=== PATIENT | female | born 1955 | race Caucasian/White ===

== ENCOUNTER → 2017-07-09 15:05 | Outpatient (CLI) | payer OTHER, SELFPAY ==
--- NOTE | 2017-07-09 15:09 | CT_ITS ---
EXAM: CT LUNG LOW DOSE WO CONTRAST COMPARISON: 05/13/2016 HISTORY: 62-year-old female with greater than 30 pack-year smoking history asymptomatic ORDERING PHYSICIAN: Colt Fountain MD PATIENT AGE: 62 years TECHNIQUE: The exam was performed on a [employer] Speed [address] scanner using 18.1 mGy CTDI. A low dose helical CT CHEST was performed on a multi-detector scanner The LDCT was performed in a facility that meets the criteria for the screening program. Data regarding this exam was submitted to ACR which is an approved registry. The order for this exam indicates that it came as a result of a lung cancer screening counseling shard decision-making visit that included all the elements required of such a visit including smoking cessation. The radiologist interpreting this exam meets the CMS criteria for the LDCT lung cancer screening program. The exam is reported using the Lung-RADS classification scale and reported to the ACR registry. NOTE: This study was performed for the specific purposes of lung cancer screening and is not an alternative to diagnostic chest CT. RADIATION DOSE: CTDI vol(CT dose Index-volume) = 18.1mG DLP (Dose Length Product) = 596.3 mGcm FINDINGS: There is improved inspiration on today's exam compared to the previous exam. A 6 mm noncalcified nodule is once again noted in the right lung base posteriorly unchanged. There are scattered calcified nodule present No new nodules are apparent. Centrilobular emphysema. There is hyperinflation with bronchial thickening. Specifically, there is bronchial thickening involving the right anterior segmental bronchus of the right upper lobe some patchy density in this segment consistent with mild bronchiolitis. No effusions. Coronary artery calcifications are present. Small hiatal hernia noted. IMPRESSION: 1. Lung RADS Category: 3, probably benign 2. Other findings: Centrilobular Emphysema/COPD Bronchiolitis in the anterior segment of the right upper lobe RECOMMENDATIONS: 12 month LDCT follow-up
== END ==
PROVIDERS: Family Provider Family Medicine; PCP Family Medicine; Visit Provider Family Medicine
DX: Z87.891 Personal history of nicotine dependence (principal); Z12.2 Encounter for screening for malignant neoplasm of respiratory organs

== ENCOUNTER → 2018-06-22 14:54 | Outpatient (CLI) | payer OTHER, SELFPAY ==
--- NOTE | 2018-06-22 15:02 | CT_ITS ---
CT lung screening EXAM: CT LUNG LOW DOSE WO CONTRAST HISTORY: 42 pack year smoking history, asymptomatic for lung cancer ITS.REASON: TOBACCO USE ORDERING PHYSICIAN: Colt Fountain MD PATIENT AGE: 63 years COMPARISON: 07/09/2017 TECHNIQUE: The exam was performed on a [employer] Light Speed [address] scanner using 2.90 mGy CTDI. A low dose helical CT CHEST was performed on a multi-detector scanner. All CT scans at the facility use one or more dose reduction, viz: automated exposure control, ma/kV adjustment per patient size (including targeted exams where dose is matched to indication, i.e. head), or iterative reconstruction technique. The LDCT was performed in a facility that meets the criteria for the screening program. Data regarding this exam was submitted to ACR which is an approved registry. The order for this exam indicates that it came as a result of a lung cancer screening counseling shard decision-making visit that included all the elements required of such a visit including smoking cessation. The radiologist interpreting this exam meets the CMS criteria for the LDCT lung cancer screening program. The exam is reported using the Lung-RADS classification scale and reported to the ACR registry. NOTE: This study was performed for the specific purposes of lung cancer screening and is not an alternative to diagnostic chest CT. RADIATION DOSE: CTDI vol(CT dose Index-volume) = 2.90mG DLP (Dose Length Product) = 96.27 mGcm FINDINGS: There has been prior anterior cervical disc fusion with artifact from the bone plate. Coronary artery calcifications are noted. There is some faint increased density in the anterior mediastinum which may be related to residual thymic tissue unchanged. Normal heart size. There are scattered calcified granulomas. 6 mm noncalcified nodule right lung base once again noted unchanged mild bronchial thickening once again noted unchanged. The previously noted opacities in the right upper lobe have resolved. There is hyperinflation with attenuation of peripheral pulmonary vessels consistent with COPD. IMPRESSION: 1. Lung RADS Category: 2, benign 2. Other findings: Coronary artery calcifications, old granulomatous disease, COPD RECOMMENDATIONS: 12 month LDCT follow-up
== END ==
PROVIDERS: PCP Family Medicine; Visit Provider Family Medicine
DX: Z12.2 Encounter for screening for malignant neoplasm of respiratory organs (principal); Z87.891 Personal history of nicotine dependence

== ENCOUNTER → 2020-08-14 08:19 | Outpatient (CLI) | payer MEDICARE, SELFPAY ==
--- NOTE | 2020-08-14 08:24 | CT_ITS ---
PROCEDURE: CT LUNG SCREENING CLINICAL INDICATION: H/O NICOTINE DEPENDENCE Current smoker 50 pack year smoking history copd Prior on pacs COMPARISON: CT LDCTLCAS LDCT FOR LUNG CA SCREEN from 05/13/[address] lung screening from 06/22/2018 TECHNIQUE: The exam was performed on a [employer] Speed [address] scanner using 2.90 mGy CTDI. A low dose helical CT CHEST was performed on a multi-detector scanner. All CT scans at the facility use one or more dose reduction, viz: automated exposure control, ma/kV adjustment per patient size (including targeted exams where dose is matched to indication, i.e. head), or iterative reconstruction technique. The LDCT was performed in a facility that meets the criteria for the screening program. Data regarding this exam was submitted to ACR which is an approved registry. The order for this exam indicates that it came as a result of a lung cancer screening counseling shard decision-making visit that included all the elements required of such a visit including smoking cessation. The radiologist interpreting this exam meets the CMS criteria for the LDCT lung cancer screening program. The exam is reported using the Lung-RADS classification scale and reported to the ACR registry. NOTE: This study was performed for the specific purposes of lung cancer screening and is not an alternative to diagnostic chest CT. RADIATION DOSE: CTDI vol(CT dose Index-volume) = 2.90mG DLP (Dose Length Product) = 88.56 mGcm FINDINGS: COPD changes. Scattered calcified granulomas. Stable 6 mm noncalcified nodule right lower lobe posteriorly image 38 series 4. No new nodules evident. OTHER FINDINGS: Coronary artery calcifications. Prior right nephrectomy.. Prior cholecystectomy. IMPRESSION: Lung-RADS Category 1 Negative Follow-up: Continue annual screening with LDCT in 12 months Dictated by: Brody Goodman MD 08/17/2020 12:55 Brody Goodman MD in [place] 08/17/2020 12:55
--- NOTE | 2020-08-14 08:24 | MM_ITS ---
PROCEDURE INFORMATION: Exam: Screening 3D Mammography Exam date and time: 08/14/2020 8:24 AM Age: 65 years old Clinical indication: Encounter for screening mammogram for malignant neoplasm of breast TECHNIQUE: Imaging protocol: Screening tomosynthesis and 2D mammography including computer-aided detection (CAD) when performed. COMPARISON: MG DMSB DIG MAMM-SCREEN SARAY W/CAD 05/13/2016 3:31 PM FINDINGS: MAMMOGRAPHY: Breast composition: The breasts are extremely dense, which lowers the sensitivity of mammography. Mass: No new suspicious masses. Architectural distortion: No suspicious distortion. Calcifications: No suspicious calcifications. Asymmetric density: None. Skin thickening: None. Axillary adenopathy: None. IMPRESSION: No mammographic evidence of malignancy. Annual screening is recommended unless otherwise clinically indicated. ASSESSMENT: BI-RADS Category 1: Negative
--- NOTE | 2020-08-14 08:25 | XR_ITS ---
PROCEDURE: XR DEXA AXIAL SKELETON CLINICAL HISTORY: POST [place] Pt had spinal fusion COMPARISON: No exams were available for comparison FINDINGS: The right hip BMD is 0.547 with a T-score of -2.7. The left hip BMD is 0.695 with a T-score of -2.0. The right forearm BMD is 0.493 with a T-score of -3.4. IMPRESSION: This patient is considered osteoporotic according to the World Health Organization criteria. Fracture risk is high. Treatment is advised. Based on these results a follow-up exam is recommended in 1 year. Dictated by: Brody Goodman MD 08/15/2020 06:26 Brody Goodman MD in [place] 08/15/2020 06:26
== END ==
PROVIDERS: PCP Family Medicine; Visit Provider Internal Medicine Adolescent Medicine
DX: Z87.891 Personal history of nicotine dependence (principal); Z12.2 Encounter for screening for malignant neoplasm of respiratory organs; Z12.31 Encounter for screening mammogram for malignant neoplasm of breast; Z13.820 Encounter for screening for osteoporosis; Z78.0 Asymptomatic menopausal state
CPT/HCPCS: 71271; 77063; 77067; 77080

== ENCOUNTER → 2022-01-18 08:27 | Outpatient (CLI) | payer MEDICARE, SELFPAY ==
--- NOTE | 2022-01-18 08:31 | MM_ITS ---
PROCEDURE INFORMATION: Exam: MG Bilateral Screening 3D Mammography Exam date and time: 01/18/2022 8:32 AM Age: 66 years old Clinical indication: Screening examination TECHNIQUE: Imaging protocol: Bilateral Screening tomosynthesis and 2D mammography including computer-aided detection (CAD) when performed. COMPARISON: 1. MG MM DIG SCREENING MAMM BI W/CAD 08/14/2020 9:13 AM 2. MG DMSB DIG MAMM-SCREEN SARAY W/CAD 05/13/2016 3:31 PM 3. MG DMSB DIG MAMM-SCREEN SARAY 07/09/2013 4:02 PM 4. MG DIGMAMMDX MAMMOGRAM DX-LEAD CAREGIVER N/C 03/09/1999 4:23 PM FINDINGS: MAMMOGRAPHY: Breast composition: The breast is heterogeneously dense, which may obscure small masses. Mass: Stable benign-appearing subcentimeter nodules are present in the left breast. No new or morphologically suspicious nodule has developed to suggest malignancy. Architectural distortion: No new or suspicious architectural distortion. Calcifications: Stable benign-appearing calcifications are present. No new or suspicious cluster of microcalcifications have developed. Asymmetric density: No new or suspicious asymmetric density is present Skin thickening: None. Axillary adenopathy: None. IMPRESSION: No mammographic evidence of malignancy. Recommend annual screening mammography unless otherwise clinically indicated. ASSESSMENT: BI-RADS category 2: Benign
--- NOTE | 2022-01-18 08:32 | XR_ITS ---
FINAL REPORT TECHNIQUE: Bone densitometry calculations of the lumbar spine and both hips were obtained. CLINICAL HISTORY: . post menopausal COMPARISON: 08/14/2020 FINDINGS: DEXA BONE DENSITY AXIAL SKELETON Using L1-4, the bone mineral density of the spine is 0.741 g/cm2, corresponding to T-score of -2.8. Previously not measured. Using the left hip, the bone mineral density of the femoral neck is 0.684 g/cm2, corresponding to a T-score of -2.1. Previously measured 0.695 g/cm2, corresponding to T-score of -2.0. Using the right hip, the bone mineral density of the femoral neck is 0.786 g/cm2, corresponding to a T-score of -1.3. Previously measured 0.757 g/cm2, corresponding to T-score of -1.5. NOTE: T-score: Standard deviation compared with peak bone mass of young adult mean. *Following the recommendations of the International Society of Bone densitometry, classification of hip BMD is based on the lower of two T-scores; total hip or femoral neck. IMPRESSION: Osteoporosis: Lowest T-score is at or below -2.5. This patient's T-score meets the World Health Organization criteria for osteoporosis. Reviewed, Interpreted and Dictated by Cristin Cruz MD Transcribed by Silvana Bui Authenticated and [facility]
== END ==
PROVIDERS: PCP Internal Medicine Adolescent Medicine; Visit Provider Internal Medicine Adolescent Medicine
DX: Z12.31 Encounter for screening mammogram for malignant neoplasm of breast (principal); M81.0 Age-related osteoporosis without current pathological fracture
CPT/HCPCS: 77063; 77067; 77080

== ENCOUNTER → 2022-02-13 10:00 | Outpatient (CLI) | payer MEDICARE, SELFPAY ==
--- NOTE | 2022-02-13 10:06 | US_ITS ---
FINAL REPORT CLINICAL HISTORY: NECK MASS FINDINGS: Limited sonographic images of the right neck were obtained. No mass or abnormal fluid collection identified. IMPRESSION: No mass or abnormal fluid collection. Reviewed, Interpreted and Dictated by Alexis Kimbrough III, MD Transcribed by Rachana Layton Authenticated and . [facility]
--- NOTE | 2022-02-13 10:23 | US_ITS ---
FINAL REPORT CLINICAL HISTORY: NECK MASS FINDINGS: THYROID ULTRASOUND Sonographic images of the thyroid was obtained. The right lobe of the thyroid measures 4.5 x 2.1 x 1.6 cm. There is a nodule in the right lobe measuring 4 x 3 x 3 mm. It is solid and hypoechoic TI-RADS 4. The left lobe of the thyroid measures 4.2 x 1.4 x 1.3 cm. The isthmus measures 3 mm. There is a nodule at the isthmus measuring 14 x 14 x 7 mm. It is solid and hypoechoic, TI-RADS 4. Small less than 5 mm TI-RADS 1 cysts in both thyroid lobes. IMPRESSION: TI-RADS category 4 nodule at the isthmus and small less than 5 mm TI-RADS 1 cysts in both thyroid lobes. Recommend follow-up 6-12 months. Reviewed, Interpreted and Dictated by Alexis Kimbrough III, MD Transcribed by Silvana Bui Authenticated and [facility]
== END ==
PROVIDERS: PCP Internal Medicine Adolescent Medicine; Visit Provider Internal Medicine Adolescent Medicine
DX: R22.1 Localized swelling, mass and lump, neck (principal)
CPT/HCPCS: 76536

== ENCOUNTER → 2022-02-22 07:48 | Outpatient (CLI) | payer MEDICARE, SELFPAY ==
--- NOTE | 2022-02-22 07:49 | FL_ITS ---
FINAL REPORT CLINICAL HISTORY: fluoro time 1.07 difficulty swallowing FINDINGS: ESOPHAGRAM HISTORY: Abdominal pain, nausea. PROCEDURE: The patient ingested barium. Effervescent crystals were also administered. Spot and overhead films were obtained. FINDINGS: The esophagus is normal. There is a small sliding type hiatal hernia. A 13 mm barium tablet is briefly delayed at the hiatal hernia but passes.. There is no gastroesophageal reflux. Peristalsis is normal. IMPRESSION: Small sliding-type hiatal hernia, otherwise unremarkable esophagram. Films reviewed , interpreted and dictated by Dr. Kimbrough Transcribed by Connor Houston PA-C. Reviewed, Interpreted and Dictated by Alexis Kimbrough III, MD Transcribed by WALESKA Monge Authenticated and [facility]
== END ==
PROVIDERS: PCP Internal Medicine Adolescent Medicine; Visit Provider Otolaryngology
DX: E04.2 Nontoxic multinodular goiter (principal); R13.10 Dysphagia, unspecified; R49.0 Dysphonia
CPT/HCPCS: 74220

== ENCOUNTER 2022-05-14 11:56 | Emergency (ER) | payer MEDICARE, SELFPAY ==
--- NOTE | 2022-05-14 12:15 | XR_ITS ---
FINAL REPORT CLINICAL HISTORY: pain FINDINGS: LEFT FOOT Three views of the left foot demonstrate no acute fracture or dislocation. The joint spaces are preserved. The soft tissues are unremarkable. IMPRESSION: No acute bony abnormality. Reviewed, Interpreted and Dictated by Cristin Cruz MD Transcribed by Silvana Bui Authenticated and [facility]
[2022-05-14 12:45] VITALS: BP 150/54; PULSE 77; RESP 20; TEMP 36.5; O2SAT 95; BMI 25.4
--- NOTE | 2022-05-14 12:48 | EXP.UTC ---
Discharge Plan Disposition Patient Disposition: Home, Self-Care Condition: Good Prescriptions Prescriptions: No Action omeprazole 40 mg capsule,delayed release(DR/EC) 40 mg PO DAILY Qty: 90 3RF lisinopril 40 mg Tablet 40 mg PO DAILY Referrals Follow up/Referrals: Shakeel Chester MD [Primary Care Provider] - See instructions Ines Nguyen DPM [Staff Physician] - See instructions Activity Restrictions/Add. Instructions Additional Instructions/Restrictions: Rest the extremity, Elevate the extremity as tolerated while you are resting. Take tylenol or ibuprofen for pain. Follow up with Dr. Nguyen (podiatry). I put in a referral but you need to call her office and schedule an appointment. Follow up with your regular doctor. GO TO THE ER FOR ANY WORSENING SYMPTOMS Clinical Impressions Clinical Impression: Foot pain, left, Crush injury of left foot Discharge ED Provider: Sammy Aly [facility] HPI General Stated complaint: AO @home 04/30 LT foot pain Time Seen by Provider: 05/14/22 12:48 History of Present Illness Provider Complaint: She states that for the past 2 weeks she has had left foot pain. She dropped an ice pack on her foot then. She states that her pain and tenderness is located near the base of her 5th toe. She denies any ankle pain or other injury. Related Data Home Medications Medication Instructions Recorded Confirmed lisinopril 40 mg tablet 40 mg PO DAILY High blood pressure 05/14/22 05/14/22 Previous Rx's Medication Instructions Recorded omeprazole 40 mg capsule,delayed 40 mg PO DAILY #90 caps 02/19/22 release Allergies Allergy/AdvReac Type Severity Reaction Status Date / Time No Known Allergies Allergy Verified 05/14/22 12:57 [facility] Disclaimer: The information contained in this section may have been updated after the patient was seen, as this information can be updated by other users. Medical History Dysphagia Hoarseness Mass in neck Multiple thyroid nodules Surgical History History of right nephrectomy History of rotator cuff surgery History of spinal fusion History of total abdominal hysterectomy Social History Smoking Status: Current every day smoker alcohol intake: never current occupational status: retired Travel in the last 8 weeks: None ROS Obtained: Yes All systems reviewed & no additional complaints except as documented Constitutional Constitutional: Denies chills and Denies fever(s) Musculoskeletal Musculoskeletal: Reports as per HPI Integumentary/Breasts Skin/Breast: Reports as per HPI, Denies redness and Denies rash Neurologic Neurologic: Denies paresthesias Physical Exam General General appearance: alert and in no apparent distress Head Head exam: atraumatic, normocephalic and normal inspection Eye Eye exam: Present normal appearance, PERRL and EOMI ENT ENT exam: Present normal exam, normal oropharynx, mucous membranes moist, TM's normal bilaterally and normal external ear exam Neck Neck exam: Present normal inspection, full ROM and trachea midline; Absent meningismus or lymphadenopathy Chest Chest inspection: Present normal inspection and symmetric chest wall rise; Absent tenderness Respiratory Respiratory exam: Present normal lung sounds bilaterally; Absent respiratory distress Cardiovascular Cardiovascular exam: Present regular rate and normal rhythm; Absent JVD Abdominal Exam Abdominal exam: Present soft and normal bowel sounds; Absent distention, tenderness or guarding Extremities Exam Extremities exam: Present normal capillary refill; Absent calf tenderness Expanded Lower Extremity Exam Left: Knee exam: Present normal inspection and full ROM; Absent tenderness Lower leg exam: Present normal inspection; Absent tenderness Ankle exam: Pres
[2022-05-14 13:50] VITALS: BP 150/54; PULSE 77; RESP 20; TEMP 36.5; O2SAT 95
== END 2022-05-14 13:50 | disposition home or self-care (01) ==
PROVIDERS: Emergency Provider Nurse Practitioner Family; PCP Internal Medicine Adolescent Medicine
DX: S97.82XA Crushing injury of left foot, initial encounter (principal); W23.0XXA Caught, crushed, jammed, or pinched between moving objects, initial encounter
CPT/HCPCS: 73630; 99212; 99213; G0463

== ENCOUNTER → 2023-02-05 12:56 | Outpatient (CLI) | payer MEDICARE, SELFPAY ==
--- NOTE | 2023-02-05 12:56 | US_ITS ---
FINAL REPORT TECHNIQUE: Sonographic images of the thyroid were obtained. CLINICAL HISTORY: thyroid nodules - 1 year f/u COMPARISON: 02/13/2022 FINDINGS: The right lobe of the thyroid measures 4.8 x 1.9 x 1.6 cm. There is a stable 5 x 3 x 2 mm cystic nodule consistent with TI-RADS category 1. There is a 2nd stable 4 x 4 x 4 mm solid hypoechoic nodule consistent with TI-RADS category 4. The left lobe of the thyroid measures 4.4 x 1.4 x 1.4 cm. There are several small nodules which are stable. The isthmus measures 7 mm. There is a stable dominant nodule measuring 14 x 8 x 13 mm which is solid and hypoechoic. IMPRESSION: Stable thyroid nodules. No new abnormality identified. Consider additional follow-up in 12 months. Reviewed, Interpreted and Dictated by Alexis Kimbrough III, MD Transcribed by Rachana Layton Authenticated and [facility]
== END ==
PROVIDERS: PCP Internal Medicine Adolescent Medicine; Visit Provider Otolaryngology
DX: E04.2 Nontoxic multinodular goiter (principal)
CPT/HCPCS: 76536

== ENCOUNTER → 2023-02-17 08:41 | Outpatient (CLI) | payer MEDICARE, SELFPAY ==
--- NOTE | 2023-02-17 08:49 | XR_ITS ---
FINAL REPORT CLINICAL HISTORY: Osteoporosis screening COMPARISON: 01/18/2022 FINDINGS: Using L1-4, the bone mineral density of the spine is 0.797 g/cm2, corresponding to T-score of -2.3, consistent with low bone density. Previously 0.741 g/cm? with T score of -2.8. Using the left hip, the bone mineral density of the femoral neck is 0.628 g/cm2, corresponding to a T-score of -2.0, consistent with low bone density. Previously 0.684 g/cm? with T score of -2.1. Using the right hip, the bone mineral density of the femoral neck is 0.622 g/cm2, corresponding to a T-score of -2.0, consistent with low bone density. Previously 0.586 g/cm? with T score of -2.4. FRAX not reported because patient is being treated for osteoporosis. NOTE: T-score: Standard deviation compared with peak bone mass of young adult mean. *Following the recommendations of the International Society of Bone densitometry, classification of hip BMD is based on the lower of two T-scores; total hip or femoral neck. IMPRESSION: Diminished bone mineral density consistent with low bone density. Reviewed, Interpreted and Dictated by Alexis Kimbrough III, MD Transcribed by Geovanna Hampton Authenticated and [facility]
--- NOTE | 2023-02-17 08:49 | CT_ITS ---
FINAL REPORT TECHNIQUE: Axial CT images of the chest were obtained without contrast. Low-dose protocol was utilized. This study was performed with techniques to keep radiation doses as low as reasonably achievable (ALARA). Individualized dose reduction techniques using automated exposure control or adjustment of mA and/or kV according to the patient's size were employed. CLINICAL HISTORY: HISTORY OF NICOTINE USE current smoker 1.5ppd x 50 years COMPARISON: 08/14/2020 FINDINGS: CT CHEST WITHOUT, LOW DOSE SCREENING CT Di Vol: 2.90 mGy DLP: 90.38 mGy*cm There is no axillary, mediastinal, or hilar adenopathy. The heart size is normal. There are moderate to severe left coronary artery calcifications. There is no pleural or pericardial effusion. The lung windows show a stable 6 mm lateral right lower lobe nodule seen on image 39. There is also a stable 2 mm medial left lower lobe nodule seen on image 37. There is a 3 mm right middle lobe nodule seen on image 45 which is stable. There is a calcified granuloma in the right lower lobe. Limited images of the upper abdomen demonstrate no acute findings. Postcholecystectomy. Prior right nephrectomy. IMPRESSION: LR Category 1: 12 month follow-up low-dose chest CT is recommended. Reviewed, Interpreted and Dictated by Alexis Kimbrough III, MD Transcribed by Geovanna Hampton Authenticated and . [facility]
== END ==
PROVIDERS: PCP Internal Medicine Adolescent Medicine; Visit Provider Internal Medicine Adolescent Medicine
DX: M81.0 Age-related osteoporosis without current pathological fracture (principal); Z87.891 Personal history of nicotine dependence
CPT/HCPCS: 71271; 77080

== ENCOUNTER → 2023-03-03 13:44 | Outpatient (CLI) | payer MEDICARE, SELFPAY ==
--- NOTE | 2023-03-03 13:45 | CT_ITS ---
FINAL REPORT TECHNIQUE: Thin section axial CT images with coronal and sagittal reformats were performed through the neck. This study was performed with techniques to keep radiation doses as low as reasonably achievable (ALARA). Individualized dose reduction techniques using automated exposure control or adjustment of mA and/or kV according to the patient''s size were employed. CLINICAL HISTORY: swollen lymph node midline neck glottic area FINDINGS: There is streak artifact arising from anterior fusion hardware at C5-6. There is interbody fusion of C5-6, C6-7 and C7-T1. There is a 1.4 cm ovoid focus in the midline anterior to the trachea which appears to reside within the isthmus. This is best seen on image 76 of series 3. Salivary glands are normal. Larynx is unremarkable. Thyroid gland is unremarkable. IMPRESSION: 1.4 cm ovoid focus in the midline, anterior to the trachea appears to reside within the isthmus. Reviewed, Interpreted and Dictated by Darian Richmond MD Transcribed by Chrissy Almanza Authenticated and [facility]
== END ==
PROVIDERS: PCP Internal Medicine Adolescent Medicine; Visit Provider Nurse Practitioner
DX: R22.1 Localized swelling, mass and lump, neck (principal)
CPT/HCPCS: 70490

== ENCOUNTER → 2023-03-17 09:50 | Outpatient (CLI) | payer MEDICARE, SELFPAY ==
--- NOTE | 2023-03-17 09:51 | US_ITS ---
FINAL REPORT CLINICAL HISTORY: .isthmus nodule fna x 5-- teena apodaca FINDINGS: ULTRASOUND GUIDED THYROID BIOPSY HISTORY: Isthmus nodule. TECHNIQUE: Informed consent was obtained from the patient. Timeout procedure was performed prior to beginning. Limited sonographic evaluation of thyroid gland was performed to localize lesion of interest. The neck was prepped in a routine sterile fashion and locally anesthetized with 1% lidocaine. FNA was performed with 25-gauge needle under direct sonographic visualization. 5 passes were made. Cytology is pending. Procedure was well tolerated. CONCLUSION: 1. Technically successful thyroid fine needle aspiration. Reviewed, Interpreted and Dictated by Cristin Cruz MD Transcribed by Teena Dickerson PA-C Authenticated and [facility]
== END ==
PROVIDERS: PCP Internal Medicine Adolescent Medicine; Visit Provider Nurse Practitioner
DX: E04.2 Nontoxic multinodular goiter (principal)
CPT/HCPCS: 10005; 76536

== ENCOUNTER → 2023-04-10 14:01 | Outpatient (CLI) | payer MEDICARE, SELFPAY ==
--- NOTE | 2023-04-10 14:03 | ECG_ITS ---
APPROVED REPORT Exam: Resting ECG HR:95 bpm ECG Measurements Heart Rate 95 AXES SD 147 P 73 QRSd 88 QRS 72 QT 348 T 45 QTc 400 Conclusion SINUS RHYTHM NORMAL ECG UNCONFIRMED REPORT Electronically signed by : Shakeel Chester MD 04/10/2023 19:43:21
[2023-04-10 14:28] LABS: Basophils # 0.1 K/mm3 (0-0.2); Eosinophils # 0.7 K/mm3 (0.0-0.4); Eosinophils % 6.5 % (0.1-12.0); Hematocrit 40.8 % (37.0-47.0); Hemoglobin 14.2 g/dL (12.2-16.2); Lymphocytes # 4.2 K/mm3 (0.7-4.5); Mean Corpuscular HGB Conc 34.8 g/dL (31.8-35.4); Mean Corpuscular Hemoglobin 30.8 pg (27.0-31.2); Mean Corpuscular Volume 88.5 fl (81-99); Mean Platelet Volume 7.7 fl (7.4-10.4); Monocytes # 0.7 K/mm3 (0.1-1.0); Monocytes % 6.2 % (1.7-9.3); Neutrophils # 4.9 K/mm3 (1.8-7.8); Neutrophils % 46.3 % (37.0-80.0); Platelet Count 309 K/mm3 (142-424); Red Blood Count 4.61 M/mm3 (4.20-5.40); Red Cell Distribution Width 13.4 % (11.5-17.5); White Blood Count 10.5 K/mm3 (4.8-10.8)
[2023-04-10 15:04] LABS: Alanine Aminotransferase 19 U/L (12-78); Albumin Level 4.2 g/dl (3.5-5.0); Albumin/Globulin Ratio 1.7 (1.1-1.8); Alkaline Phosphatase 89 U/L (38-126); Anion Gap 12.3 mEq/L (5-15); Aspartate Amino Transferase 24 U/L (14-36); Bilirubin,Total 0.6 mg/dl (0.2-1.3); Blood Urea Nitrogen 36 mg/dl (7-17); Calcium 9.8 mg/dl (8.4-10.2); Carbon Dioxide 25 mmol/L (22.0-30.0); Chloride 103 mmol/L (98-107); Estimated Glomerular Filt Rate 35 ml/min (>60); GFR (African American) 42 ML/MIN (>60); Globulin 2.5 g/dL (1.3-3.2); Glucose 78 mg/dl (74-100); Potassium 4.3 mmoL/L (3.5-5.1); Sodium 136 mmol/L (136-145); Total Protein,Serum 6.7 g/dl (6.3-8.2)
== END ==
PROVIDERS: PCP Internal Medicine Adolescent Medicine; Visit Provider Nurse Practitioner
DX: E04.2 Nontoxic multinodular goiter (principal); R13.10 Dysphagia, unspecified; R49.0 Dysphonia; S97.82XA Crushing injury of left foot, initial encounter; Y99.9 Unspecified external cause status
CPT/HCPCS: 36415; 80053; 85025; 93005

== ENCOUNTER 2023-06-23 13:59 | Outpatient (CLI) | payer MEDICARE, SELFPAY ==
--- NOTE | 2023-06-23 14:15 | ECG_ITS ---
APPROVED REPORT Exam: Resting ECG HR:90 bpm ECG Measurements Heart Rate 90 AXES MS 163 P 75 QRSd 85 QRS 87 QT 362 T 66 QTc 410 Conclusion SINUS RHYTHM WITH SINUS ARRHYTHMIA O/w normal ecg UNCONFIRMED REPORT Electronically signed by : Shakeel Chester MD 06/23/2023 17:53:11
[2023-06-23 14:23] LABS: Basophils # 0.1 K/mm3 (0-0.2); Basophils % 1.1 % (0.1-2.0); Eosinophils # 0.2 K/mm3 (0.0-0.4); Eosinophils % 2.6 % (0.1-12.0); Hematocrit 39.1 % (37.0-47.0); Hemoglobin 12.7 g/dL (12.2-16.2); Lymphocytes # 3.2 K/mm3 (0.7-4.5); Lymphocytes % 36.7 % (10-50); Mean Corpuscular HGB Conc 32.6 g/dL (31.8-35.4); Mean Platelet Volume 7.5 fl (7.4-10.4); Monocytes # 0.5 K/mm3 (0.1-1.0); Monocytes % 5.2 % (1.7-9.3); Neutrophils # 4.7 K/mm3 (1.8-7.8); Neutrophils % 54.4 % (37.0-80.0); Platelet Count 325 K/mm3 (142-424); Red Blood Count 4.24 M/mm3 (4.20-5.40); Red Cell Distribution Width 13.6 % (11.5-17.5); White Blood Count 8.6 K/mm3 (4.8-10.8)
[2023-06-23 14:39] LABS: Alanine Aminotransferase 17 U/L (12-78); Albumin Level 3.9 g/dl (3.5-5.0); Albumin/Globulin Ratio 1.9 (1.1-1.8); Alkaline Phosphatase 68 U/L (38-126); Anion Gap 6.8 mEq/L (5-15); Aspartate Amino Transferase 22 U/L (14-36); Bilirubin,Total 0.6 mg/dl (0.2-1.3); Blood Urea Nitrogen 21 mg/dl (7-17); Calcium 9.3 mg/dl (8.4-10.2); Carbon Dioxide 29 mmol/L (22.0-30.0); Chloride 107 mmol/L (98-107); Estimated Glomerular Filt Rate 62 ml/min (>60); GFR (African American) 75 ML/MIN (>60); Globulin 2.1 g/dL (1.3-3.2); Glucose 96 mg/dl (74-100); Potassium 3.8 mmoL/L (3.5-5.1); Sodium 139 mmol/L (136-145)
== END 2023-06-23 23:59 ==
LOC: LAB 14:01
PROVIDERS: PCP Internal Medicine Adolescent Medicine; Visit Provider Otolaryngology
DX: Z01.818 Encounter for other preprocedural examination (principal)
CPT/HCPCS: 36415; 80053; 85025; 93005

== ENCOUNTER 2023-08-22 08:06 | Outpatient (CLI) | payer MEDICARE, SELFPAY ==
[2023-08-22 10:06] LABS: Thyroid Stimulating Hormone 1.94 uIU/mL (0.465-4.68)
== END 2023-08-22 23:59 | disposition home or self-care (01) ==
LOC: LAB 08:07
PROVIDERS: PCP Internal Medicine Adolescent Medicine; Visit Provider Otolaryngology
DX: E04.2 Nontoxic multinodular goiter (principal)
CPT/HCPCS: 36415; 84443

== ENCOUNTER 2024-01-22 12:37 | Outpatient (CLI) | payer MEDICARE, SELFPAY ==
--- NOTE | 2024-01-22 12:47 | XR_ITS ---
FINAL REPORT CLINICAL HISTORY: RT HIP PAIN FINDINGS: Sacroiliac joints Three views were obtained. There is no acute fracture or dislocation. The joint spaces appear normal. No soft tissue abnormality is identified. IMPRESSION: No acute process. Reviewed, Interpreted and Dictated by Darian Richmond MD Transcribed by Rachana Layton Authenticated and [facility]
--- NOTE | 2024-01-22 12:47 | XR_ITS ---
FINAL REPORT CLINICAL HISTORY: .right hip pain FINDINGS: Right hip Three views were obtained. There is no acute fracture or dislocation. The joint spaces appear normal. No soft tissue abnormality is identified. IMPRESSION: No acute process. Reviewed, Interpreted and Dictated by Darian Richmond MD Transcribed by Rachana Layton Authenticated and [facility]
== END 2024-01-22 23:59 | disposition home or self-care (01) ==
LOC: RAD 12:40
PROVIDERS: PCP Internal Medicine Adolescent Medicine; Visit Provider Internal Medicine Adolescent Medicine
DX: M25.551 Pain in right hip (principal)
CPT/HCPCS: 72202; 73502

== ENCOUNTER 2024-02-05 12:49 | Outpatient (CLI) | payer MEDICARE, SELFPAY ==
--- NOTE | 2024-02-05 12:51 | MM_ITS ---
PROCEDURE INFORMATION: Exam: MG Bilateral Screening 3D Mammography Exam date and time: 02/05/2024 12:47 PM Age: 68 years old Clinical indication: Screening examination TECHNIQUE: Imaging protocol: Bilateral Screening tomosynthesis and 2D mammography including computer-aided detection (CAD) when performed. COMPARISON: 1. MG MM DIG SCREENING MAMM BI W/CAD 01/18/2022 8:32 AM 2. MG MM DIG SCREENING MAMM BI W/CAD 08/14/2020 9:13 AM FINDINGS: MAMMOGRAPHY: Breast composition: The breasts are heterogeneously dense, which may obscure small masses. Mass: No suspicious masses. Architectural distortion: None. Calcifications: No suspicious calcifications. Asymmetric density: None. Skin thickening: None. Axillary adenopathy: None. IMPRESSION: No mammographic evidence of malignancy. Annual screening is recommended unless otherwise clinically indicated. ASSESSMENT: BI-RADS Category 1: Negative.
--- NOTE | 2024-02-05 12:52 | CT_ITS ---
FINAL REPORT TECHNIQUE: Thin section axial images were obtained from the lung apices to the upper abdomen by computed tomography. Reformatted images were obtained and reviewed. This study was performed with techniques to keep radiation doses al low as reasonably achievable (ALARA). Individualized dose reduction techniques using automated exposure control or adjustment of mA and/or kV according to the patient's size were employed. CLINICAL HISTORY: current smoker, 1 ppd x 50 + years COMPARISON: 02/17/2023 FINDINGS: CHEST CT LOW DOSE CTDI vol (mGy): 2.90 DLP (mGy-cm): 96.38 There is no axillary adenopathy. There is no mediastinal or hilar mass or adenopathy. The heart is normal in size. There are moderate coronary artery calcifications. There is no pericardial or pleural effusion. There is mild emphysema and mild pulmonary scarring. Lung window images demonstrate stable pulmonary nodules including a 6 mm lateral right lower lobe nodule on series 3 image 44 and a 3 mm right middle lobe nodule on series 3 image 50. There is a calcified granuloma at the right lung base. No new pulmonary mass or nodule is identified. Limited images of the upper abdomen are unremarkable. Postcholecystectomy. Prior right nephrectomy. IMPRESSION: Stable lung nodules. Lung-RADS category 1. Recommend 12 month follow up low dose chest CT. Authenticated and [facility]
== END 2024-02-05 23:59 | disposition home or self-care (01) ==
LOC: RAD 12:49
PROVIDERS: PCP Internal Medicine Adolescent Medicine; Visit Provider Internal Medicine Adolescent Medicine
DX: Z12.31 Encounter for screening mammogram for malignant neoplasm of breast (principal); Z87.891 Personal history of nicotine dependence
CPT/HCPCS: 71271; 77063; 77067

== ENCOUNTER 2024-09-27 13:17 | Outpatient (CLI) | payer MEDICARE, SELFPAY ==
--- NOTE | 2024-09-27 13:30 | US_ITS ---
FINAL REPORT TECHNIQUE: Ultrasound images of the thyroid were obtained. CLINICAL HISTORY: history of partial thyroidectomy surgery FINDINGS: The right lobe of the thyroid measures 4.2 x 1.9 x 1.5 cm. It is normal in echogenicity. The left lobe of the thyroid measures 4.5 x 1.6 x 1.3 cm. It is normal in echogenicity. There is a 5 mm cystic focus in the upper pole of the right lobe, a 5 mm hypoechoic nodule in the mid right lobe and a 4 mm nodule in the upper pole of the left lobe. IMPRESSION: Multiple subcentimeter cystic and hypoechoic lesions. No follow-up needed per Fleischner criteria. Reviewed, Interpreted and Dictated by Darian Richmond MD Transcribed by Chrissy Almanza Authenticated and [facility]
[2024-09-27 15:24] LABS: Thyroid Stimulating Hormone 1.43 uIU/mL (0.465-4.68)
== END 2024-09-27 23:59 | disposition home or self-care (01) ==
LOC: RAD 13:18
PROVIDERS: PCP Internal Medicine Adolescent Medicine; Visit Provider Otolaryngology
DX: E04.2 Nontoxic multinodular goiter (principal); E89.0 Postprocedural hypothyroidism; Z98.890 Other specified postprocedural states
CPT/HCPCS: 36415; 76536; 84443

== ENCOUNTER 2025-03-22 00:56 | Observation (INO) | payer MEDICARE, SELFPAY ==
[2025-03-22] VITALS (27 sets, daily range): BP systolic 117–249; BP diastolic 47–95; PULSE 70–92; RESP 16–20; TEMP 36.5–37.1; O2SAT 96–99; BMI 22.3; BMI 22.4
--- NOTE | 2025-03-22 00:58 | HMH.EDGENADL ---
Discharge Plan Disposition Patient Disposition: Admitted Prescriptions Prescriptions: No Action alendronate 70 mg tablet 70 mg PO DAILY lisinopril 40 mg Tablet 40 mg PO DAILY Referrals Follow up/Referrals: Shakeel Chester MD [Primary Care Provider, Internal Medicine] - See instructions Clinical Impressions Clinical Impression: Hypertensive urgency, Headache Print Language Print Language: French Discharge ED Provider: Yohan Saenz General Adult HPI General Chief complaint: Headache Stated complaint: High Blood Pressure; 218/79 Time Seen by Provider: 03/22/25 00:58 History of Present Illness HPI narrative: 69-year-old female with history of hypertension presents for hypertension and headache. She reports that she was recently switched from her lisinopril to losartan within the last month or so and has had more high blood pressure since then. She only has 1 kidney. She reports her headache is mild and is slowly increased with her blood pressure increasing. Her blood pressure was 220 systolic at home. She denies any numbness, weakness, vision changes. Denies any chest pain or shortness of breath Related Data Home Medications ?Medication ?Instructions ?Recorded ?Confirmed lisinopril 40 mg tablet 40 mg PO DAILY High blood pressure 05/14/22 10/13/24 alendronate 70 mg tablet 70 mg PO DAILY 02/10/23 10/13/24 Allergies Allergy/AdvReac Type Severity Reaction Status Date / Time No Known Allergies Allergy Verified 10/13/24 14:13 [facility] Disclaimer: The information contained in this section may have been updated after the patient was seen, as this information can be updated by other users. Medical History Hoarseness Dysphagia Multiple thyroid nodules Mass in neck Surgical History Status post thyroid surgery History of total abdominal hysterectomy History of rotator cuff surgery History of spinal fusion History of right nephrectomy Social History Smoking Status: Current every day smoker alcohol intake: never current occupational status: retired Travel in the last 8 weeks?: None Have you lived/traveled outside US in past 30 days?: No Contact w/someone who lives/traveled outside US past 30 days?: No Exposure to someone with infectious disease in past 14 days?: No Do you have a fever (greater than 100.4 F or 38 C)?: No Have you tested positive for COVID-19?: No Exposed to someone with COVID-19 in past 14 days?: No Do you have a sore throat?: No Do you have a cough?: No Do you have any weakness?: No Do you have any diarrhea?: No Are you experiencing any unusual bleeding?: No Do you have any muscle aches/pain?: No Do you have any abdominal pain?: No Are you experiencing loss of taste or smell?: No Other Medical History Have you received the Pneumonia Vaccine: Yes ROS Obtained: Yes All systems reviewed & no additional complaints except as documented Physical Exam General General appearance: alert and in no apparent distress Head Head exam: atraumatic and normocephalic Eye Eye exam: Present normal appearance, PERRL and EOMI ENT ENT exam: Present normal oropharynx and normal external ear exam Neck Neck exam: Present normal inspection and full ROM Chest Chest inspection: Present normal inspection and symmetric chest wall rise; Absent tenderness Respiratory Respiratory exam: Present normal lung sounds bilaterally; Absent respiratory distress Cardiovascular Cardiovascular exam: Present regular rate and normal rhythm Abdominal Exam Abdominal exam: Present soft; Absent distention, tenderness or guarding Extremities Exam Extremities exam: Present normal inspection; Absent edema or joint swelling Back Exam Back exam: Present normal inspection; Absent tenderness Neurological Exam Neurological exam: Present alert and oriented X3; Absent motor sensory deficit Psychiatric Psychiatric exam: Present normal affect and normal mood Skin Skin exam: Present warm, dry and normal color Lymphatic Lymphatic Findings: no adenopathy Medical Decision Making Medical Records Medical records reviewed: Yes I reviewed the patient's medical records. Screening: Per USPSTF and CDC recommendations, given the prevalence of disease in our region, it is our hospital?s policy to screen for HIV and viral Hepatitis for all patients aged 18 and over and those with ongoing risk factors. Yon Inquiry Pt receiving controlled substance: No Yon was queried for this patient: No Vital Signs: 03/22/25 01:13 Temperature 98 F Temperature Source Oral Pulse Rate [Left] 86 Respiratory Rate 16 Blood Pressure [Right Arm] 249/95 H Blood Pressure Mean [Right Arm] 146 Blood Pressure Source [Right Arm] Automatic Cuff Blood Pressure Position [Right Arm] Sitting 02 Sat by Pulse Oximetry 97 Oxygen Delivery Method Room Air Lab Data Lab results reviewed: Yes I reviewed the patient's lab results. Lab Results 03/22/25 01:25: WBC 11.0 H, RBC 5.02, Hgb 15.1, Hct 44.0, MCV 87.6, MCH 30.1, MCHC 34.3, RDW 12.8, Plt Count 302, MPV 9.0, Neut % (Auto) 43.7, Lymph % (Auto) 47.4, [place] % (Auto) 5.9, Eos % (Auto) 2.1, Baso % (Auto) 0.6, Neut # (Auto) 4.8, Lymph # (Auto) 5.2 H, [place] # (Auto) 0.7, Eos # (Auto) 0.2, Baso # (Auto) 0.1, Total Counted 100, Neutrophils % (Manual) 40 L, Lymphocytes % (Manual) 50, Monocytes % (Manual) 1 L, Eosinophils % (Manual) 5 H, Basophils % (Manual) 4.0 H, Platelet Estimate Normal, RBC Morphology Normal, Sodium 133 L, Potassium 4.2, Chloride 105, Carbon Dioxide 23, Anion Gap 9.2, BUN 29 H, Creatinine 1.10 H, Estimated Creat Clear 44, Estimated GFR 49 L, Est GFR ( Amer) 59, Glucose 103 H, Calcium 9.7, Magnesium 2.1, Total Bilirubin 0.9, AST 22, ALT 15, Alkaline Phosphatase 95, Troponin I < 0.01, NT-Pro-B Natriuret Pep 432 H, Total Protein 7.3, Albumin 4.4, Globulin 2.9, Albumin/Globulin Ratio 1.5 03/22/25 01:25 03/22/25 01:25 Orders (Tests/Meds): ED MEDICATIONS Generic Name Dose Route Start Last Admin Trade Name Freq PRN Reason Stop Dose Admin Lactated Ringer's 1,000 mls @ 999 mls/hr 03/22/25 03:30 03/22/25 03:30 Lactated Ringer's 1000 Ml Bag IV 03/22/25 04:30 999 mls/hr .Q1H1M CAROL Administration Lisinopril 20 mg 03/22/25 09:00 03/22/25 01:35 Lisinopril 20mg Tablet PO 04/21/25 08:59 20 mg DAILY CAROL Administration Discontinued Medications Generic Name Dose Route Start Last Admin Trade Name Freq PRN Reason Stop Dose Admin Hydralazine HCl 10 mg 03/22/25 01:26 03/22/25 01:35 Hydralazine 20mg/Ml Vial IV 03/22/25 01:27 10 mg ONCE ONE Administration Hydralazine HCl 10 mg 03/22/25 02:17 03/22/25 02:39 Hydralazine 20mg/Ml Vial IV 03/22/25 02:18 10 mg ONCE ONE Administration Hydralazine HCl 25 mg 03/22/25 02:17 03/22/25 02:38 Hydralazine Hcl 25mg Tablet PO 03/22/25 02:18 25 mg ONCE ONE Administration ORDERS Category Date Time Status BNP [NT Pro Brain Natriuretic Pep.] Stat Lab 03/22/25 01:25 Completed CBC w/Auto Diff [Complete Blood Count Auto Diff] Stat Lab 03/22/25 01:25 Completed CMP [Comprehensive Metabolic Panel] Stat Lab 03/22/25 01:25 Completed HIV Combo Routine Lab 03/22/25 01:25 Received Hepatitis C Ab Qual. W/ RFX Routine Lab 03/22/25 01:25 Received Magnesium Stat Lab 03/22/25 01:25 Completed Troponin I Q3H Lab 03/22/25 01:25 Completed Troponin I Q3H Lab 03/22/25 04:30 Ordered ECG Data Tracing #1: I reviewed this ECG and interpreted as documented below: Sinus rhythm, ventricular rate of 63, no significant ST elevation, subtle less than [address] depression, minimal if any. ECG initial impression date: 03/22/25 ECG initial impression time: 01:30 HEART Score History (anamnesis): Slightly suspicious ECG: Normal Age: >65 years Risk factors: 1-2 risk factors Troponin: </= normal limit HEART Score: 3 Medical Decision Narrative: 69-year-old female with history of hypertension presents for hypertension at home with slowly worsening headache. History was obtained via interactive discussion with patient, family, chart review. On arrival, patient is afebrile, satting properly on room air, alert and oriented, moving all extremities spontaneously. Blood pressure is significantly elevated at 250 systolic. Full physical exam performed and significant for no significant physical exam abnormality. Differential includes but is not limited to hypertensive urgency, hypertensive emergency, subarachnoid hemorrhage. I discussed with patient that given her hypertension and headache I would recommend a CT scan and a chest x-ray. Patient reports that she just wants to do blood pressure down and see how she feels and does not want a CT or x-ray at this time.. Patient was given p.o. lisinopril, IV hydralazine for symptomatic management and correction of underlying abnormalities. Workup initiated including basic labs, EKG. On re-evaluation, patient blood pressure improved to 200 systolic but then went back up to 228 systolic. I discussed with patient that I would recommend admission for her serious hypertension. She reports that she is not interested in being admitted. She was given additional 10 of IV hydralazine as well as 25 of p.o. hydralazine. Laboratory workup independently interpreted by me and significant for no significant elevation in creatinine, normal electrolytes. BNP minimally elevated, negative initial troponin. On reassessment, blood pressure improved to 170s systolic, and then 150 systolic. On further reassessment, blood pressure continues to decrease significantly. She became nauseous and her blood pressure dropped below 100 systolic. She was given a 1 L IV fluid bolus with stabilization of blood pressure around 115. With further monitoring, her blood pressure continue to be stable, uptrending to around 150 systolic. She was able to ambulate, but is feeling shaky. Patient reports that she is now willing to be admitted. I had an interactive discussion with hospitalist on-call for admission. Procedures Risk/Benefits of Procedure(s) Were Explained: Yes Critical Care Critical Care Time Critical Care Time: Yes Attestation: On 03/22/25, the high probability of a clinically significant, sudden or life threatening deterioration of the following system(s) required my full and direct attention, intervention and personal management. The time I documented below is in addition to time spent performing reported procedures but includes the following listed in this critical care notation. Total Time Total Critical Care Time: 40
--- OUTSIDE RECORDS SUMMARY | 2025-03-22 01:03 | XMS_ITS | Data Portability ---
Author Organization [facility] Address [address] [place] [address] Care Team Providers Care Director Of Assessment Name Role Phone TOSIN DAVIS Primary Care Provider Assessment Encounter Date Assessment Date Assessment LastModified by Organization Details LastModified Time 07/11/2023 07/11/2023 PREOPERATIVE DIAGNOSIS: Thyroid nodule. POSTOPERATIVE DIAGNOSIS: Thyroid nodule. PROCEDURE: Partial thyroidectomy with intraoperative nerve integrity monitoring of the recurrent laryngeal nerves bilaterally. SURGEON: Maeve Ferrari MD ANESTHESIA: General. COMPLICATIONS: None. INDICATIONS:Estefania li is a 68-year-old with a nodule of her thyroid isthmus extending onto the left thyroid lobe, and FNA showed a follicular lesion of undetermined significance. The above was recommended and informed consent obtained. FINDINGS: Solid nodule thyroid isthmus extending onto the anterior portion of the left thyroid lobe and partial thyroidectomy was performed. OPERATIVE NOTE: Patient was brought to the operating room and after adequate general anesthesia, the neck was prepped and draped in the usual sterile fashion and nerve integrity monitoring electrodes placed to monitor the recurrent laryngeal nerves bilaterally. 1% lidocaine with epinephrine was used to locally infiltrate the skin crease overlying the palpable nodule. Then, an incision made and carried through the underlying platysma and then subplatysmal flaps elevated superiorly and inferiorly. The strap muscles were then divided at midline and retracted laterally and the nodule of the thyroid isthmus was identified. The thyroid isthmus was elevated from the anterior tracheal wall and then the isthmus was resected by first dividing the right side with ligature and then ligating the vascular perforators superiorly and inferiorly that fed the thyroid nodule and then the remainder of the isthmus and a small portion of the left thyroid lobe was resected again using ligature. Finally, hemostasis was established with bipolar cautery and Ligaclips, and then wound closed in layers with 4-0 Vicryl to reapproximate the strap muscles and platysma layer and then 5-0 nylon to reapproximate the skin edges. Sterile dressing was placed and the procedure concluded. All counts were correct, blood loss minimal and patient was sent to recovery in stable condition. [email or web address] Not available 07/11/2023 16:06:11 Plan of Treatment Reminders Order Date Submit Date Provider Last Modified By Organization Details Last Modified Time Details Appointments None record ed. Lab None record ed. Referral None record ed. Procedures None record ed. Surgeries None record ed. Imaging None record ed. Medication Orders None record ed. Patient TargetsNo targets recorded. Patient Instructions Encounter Date Encounter Id Patient Instructions Last Modified By Organization Details Last Modified Time 06/11/2023 [id number] 1. Isthmusectomy , and Partial thyroid Lobectomy (possible left) recommended. Full risks, complications, and benefits of operative versus non-operative intervention have been thoroughly discussed. Understanding was expressed, informed consent given, and we will proceed with the discussed operative treatment plan. There were no questions for me at the end of the office visit. 2. F/u postoperatively [email or web address] Not available 06/11/2023 16:05:37 She has a nodule of her thyroid isthmus that on FNA showed a follicular lesion of undetermined significance with documented cellular atypia. After discussing treatment options with her she wants to proceed with partial thyroidectomy and I will try to resect the nodule while sparing both the right and left thyroid lobes though she understands that concurrent left thyroid lobectomy may be necessary. We discussed surgery in detail today along with risks benefits and alternatives and she understands that completion thyroidectomy may be necessary depending on final path results. Surgery scheduled in a few weeks. [email or web address] Not available 06/11/2023 16:07:40 Reason for Referral None Reported. Results Created Date Observation Date Name Description Value Unit Range Abnormal Flag Note LastModifiedBy Organization Detail LastModifiedTime 07/11/19 24 07/11/2023 SURGI ANGEL surgical SEE BELOW normal Depar tment of Patho logy Surgi angel Patho logy Repor t NAME: SHAWNA FROST PATH. :[id number] Copy to: Diagn osis: Nodul e of thyro id ism us: Nodul ar hyper plasi a. SOURC E OF SPECI MEN: THYRO ID, ISTHM US CLINI ANGEL INFOR MATIO N: MULTI NODUL AR GOITE R Gross Descr iptio n: Recei matt in forma allen label ed with the patie nt's name and desig nated nodu [facility] is a 2.0 g, 1.7 x 1.5 x 0.7 cm fragm ent of purpl tae andrade thyro id. The speci men is inked black . Secti oning revea ls a nodul e measu ring 1.2 cm in great est dimen shay. The nodul e abuts the overl princess capsu le but does not appea r to penet rate throu gh it. The speci men is submi tted entir july in four casse ttes label ed A1-A4 . MT 07/13 01:42 PM Micro scopi c Descr iptio n: A micro scopi c exami natio n has been perfo rmed and the resul t(s) are as noted above . MD Kristyn FINLEY Out Date: 07/14 10:16 Page 1 of 1 Not Available [facility] [address] [place] [address], [place], [phone], 07/15/2023 10:17:00 Result Notes None recorded. Medical Equipment None Reported. Allergies No known drug allergies Medications Name Sig Start Date Stop Date Status Note LastModified by Organization Details LastModified Time lisinopril 20 mg tablet Take by oral route. active Duratio n: 30 days;Fr equency : hs;Medi cation Descrip tion: lisinop ril; Dosage: 1; Route:o ral; refills :5; Quantit y:30 tablet Not Available Not Available Not Available hydrocodone 7.5 mg-acetaminop hen 325 mg tablet TAKE 1 TABS PO EVERY 6-8 HOURS PRN PAIN 2023 active Not Available Not Available Not Avai lable cephalexin 500 mg capsule Take 1 capsule 3 times a day by oral route for 7 days. 2023 active Not Available Not Available Not Avai lable ondansetron 4 mg disintegratin g tablet TAKE 1 TAB NEEDED EVERY 8 HOURS FOR NAUSEA 2023 active Not Available Not Available Not Avai lable alendronate active Not Available Not A vailable Not Available omeprazole active Not Available Not Av ailable Not Available rosuvastatin active Not Available Not Available Not Available Vitals Date Recorded Body height Body mass index (BMI) Body weight Body temperature Heart rate Systolic And Diastolic Provider Name and Address Organization Details Last Updated DateTime 4 152.4 cm 25.4 kg/m2 16895.0 1 g 97.9 [degF] 86 /min 180/68 mm[Hg] [facility] 4 14:59:10 Social History None recorded. Functional Status None recorded. Mental Status None recorded. Family History Nothing Reported. Medical History No medical history recorded. Gynecological HistoryNo gynecological history recorded. Obstetrics History GPAL:G 0 P 0 0 0 0 Past Encounters Encounter ID Performer Location Encounter Start Date Encounter Closed Date Diagnosis/Indication Diagnosis SNOMED-CT Code Diagnosis ICD10 Code Diagnosis IMO Codes Diagnosis Note [id number] MAEVE FERRARI MD [facility] [address] [place] [address] 06/11/2023 14:42:07 06/12/2023 04:08:32 Multinodular goiter 517832256 E04.2 [id number] MAEVE FERRARI MD SURGERY SCHEDULE [address] [place] [address] 07/11/2023 11:03:10 07/11/2023 11:06:35 Health Concerns Section Related Observation LastModified by Organization Detai ls LastModified Time None Recorded Concern Status LastModified by Organization Details LastModified Time None Recorded Advance Directives Directive None Recorded Payers Insurance Date Sequence Insurance Name Policy Number Policy Mendoza Covered Member ID Mendoza Member ID Guarantor Name 08/27/2023 1 [place] Shawna Lemons [id number] Shawna Lemons Notes Date Note Type Note Provider Name and Address Organization Details Recorded Time 06/11/2023 text/html Shawna Visit today is being conducted via telehealth using both audio/video. The patient confirms that he/she is physically located in [place] at the time of this visit. Patient expressed understanding of audio/video telehealth as a billable visit and has consented. Patient also expressed understanding that not every condition can be appropriately addressed via telehealth and that this telehealth visit may need to be converted to an in-person visit or may even result in a recommendation to go to the E.R. at the provider s discretion in order to provide the best possible care. Shawna calls today in follow up of her thyroid. She has been recommended to consider a left thyroid lobectomy and Isthmusectomy. She completed an FNA which showed atypical cells of unknown significance. She has been scheduled for surgery on 07/11/23. MAEVE FERRARI MD [address] [place] [address], [phone], [facility] 06/11/2023 16:07:52 OBGyn Episode No OBEpisode recorded.
--- NOTE | 2025-03-22 01:19 | ECG_ITS ---
APPROVED REPORT Exam: Resting ECG HR:67 bpm ECG Measurements Heart Rate 67 AXES NJ 153 P 26 QRSd 88 QRS 14 QT 399 T 50 QTc 414 Conclusion SINUS RHYTHM MODERATE ST DEPRESSION [0.05+ mV ST DEPRESSION] ABNORMAL ECG Electronically signed by : STEPHON JOHNSON, 03/22/2025 17:13:15
[2025-03-22] MEDS: HYDRALAZINE 20MG/ML VIAL 10 MG IV ×2 (01:35→02:39)
[2025-03-22] MEDS: LISINOPRIL 20MG TABLET 20 MG PO ×2 (01:35→09:45)
[2025-03-22 01:38] LABS: Hematocrit 44.0 % (37.0-47.0); Hemoglobin 15.1 g/dL (12.2-16.2); Immature Granulocytes % 0.3 %; Mean Corpuscular HGB Conc 34.3 g/dL (31.8-35.4); Mean Corpuscular Hemoglobin 30.1 pg (27.0-31.2); Mean Corpuscular Volume 87.6 fl (81-99); Nucleated Red Blood Cells % 0 %; Platelet Count 302 K/mm3 (142-424); Red Blood Count 5.02 M/mm3 (4.20-5.40); Red Cell Distribution Width-SD 40.9 fL; White Blood Count 11.0 K/mm3 (4.8-10.8)
[2025-03-22 01:42] LABS: Alanine Aminotransferase 15 U/L (12-78); Albumin Level 4.4 g/dl (3.5-5.0); Albumin/Globulin Ratio 1.5 (1.1-1.8); Alkaline Phosphatase 95 U/L (38-126); Anion Gap 9.2 mEq/L (5-15); Aspartate Amino Transferase 22 U/L (14-36); Bilirubin,Total 0.9 mg/dl (0.2-1.3); Blood Urea Nitrogen 29 mg/dl (7-17); Calcium 9.7 mg/dl (8.4-10.2); Carbon Dioxide 23 mmol/L (22.0-30.0); Chloride 105 mmol/L (98-107); Creatinine Clearance Estimated 44 mL/min (50-200); Creatinine,Serum 1.10 mg/dl (0.52-1.04); Estimated Glomerular Filt Rate 49 ml/min (>60); GFR (African American) 59 ML/MIN (>60); Globulin 2.9 g/dL (1.3-3.2); Glucose 103 mg/dl (74-100); Magnesium 2.1 mg/dl (1.6-2.3); Potassium 4.2 mmoL/L (3.5-5.1); Sodium 133 mmol/L (136-145); Total Protein,Serum 7.3 g/dl (6.3-8.2)
[2025-03-22 01:54] LABS: NT Pro Brain Natriuretic Pep. 432 pg/mL (0-125)
[2025-03-22 01:56] LABS: Troponin I < 0.01 ng/ml (0.00-0.034)
[2025-03-22 02:27] LABS: Total Cells Counted 100
[2025-03-22 02:28] LABS: RBC Morphology Normal
[2025-03-22] MEDS: HYDRALAZINE HCL 25MG TABLET 25 MG PO (02:38)
[2025-03-22] MEDS: LACTATED RINGERS 1000ML 1,000 ML 999 ML IV (03:30)
--- NOTE | 2025-03-22 04:45 | PC.NURSE ---
report called to Mone Krause RN
[2025-03-22 04:53] LABS: Hematocrit 38.1 % (37.0-47.0); Immature Granulocytes % 0.3 %; Mean Corpuscular HGB Conc 34.1 g/dL (31.8-35.4); Mean Corpuscular Hemoglobin 30.1 pg (27.0-31.2); Mean Corpuscular Volume 88.2 fl (81-99); Nucleated Red Blood Cells % 0 %; Platelet Count 255 K/mm3 (142-424); Red Blood Count 4.32 M/mm3 (4.20-5.40); Red Cell Distribution Width-SD 41.6 fL; White Blood Count 10.6 K/mm3 (4.8-10.8)
[2025-03-22 05:01] LABS: Hemoglobin 12.9 g/dL (12.2-16.2)
[2025-03-22 05:17] LABS: Chloride 112 mmol/L (98-107); Potassium 4.0 mmoL/L (3.5-5.1); Sodium 142 mmol/L (136-145)
--- NOTE | 2025-03-22 05:17 | PC.NURSE ---
Patient arrived to floor via wheelchair from ED at 05:13.
[2025-03-22 05:20] LABS: Blood Urea Nitrogen 23 mg/dl (7-17); Creatinine Clearance Estimated 49 mL/min (50-200); Creatinine,Serum 0.90 mg/dl (0.52-1.04); Estimated Glomerular Filt Rate 62 ml/min (>60); GFR (African American) 75 ML/MIN (>60)
[2025-03-22 05:21] LABS: Anion Gap 10.0 mEq/L (5-15); Calcium 8.1 mg/dl (8.4-10.2); Carbon Dioxide 24 mmol/L (22.0-30.0); Glucose 100 mg/dl (74-100)
[2025-03-22 05:34] LABS: Troponin I < 0.01 ng/ml (0.00-0.034)
[2025-03-22 06:49] LABS: Hepatitis C Ab Qual. W/ RFX NEGATIVE (Negative)
--- NOTE | 2025-03-22 07:24 | P.HP_ITS ---
<Statement entered by Jeison Sands MD - 03/29/25 15:55> Agree with plan of care as outlined by the [facility] ASSOCIATE. History of Present Illness *Admission Date: 03/22/25 *Reason for visit:: Hypertension urgency *History of present illness: Patient is a 69-year-old female with a past medical history significant for hypertension. She presents to [facility] due to uncontrolled hypertension. Reports recent change to her antihypertensive medication per mayra baird. States that she was switched from lisinopril to losartan within the last month and since has had issues with intermittent high blood pressure. Patient concerned due to 1 functioning kidney. Prior to arrival to the emergency department she noted her blood pressure with a diastolic pressure in the 100s. She notified her provider who encouraged her to follow-up with the emergency department for further evaluation and treatment due to elevated BP. On arrival she was found to have systolic blood pressures in the upper 200 range. Patient ultimately developed a headache but states she typically has a headache with her elevated blood pressures. Declined CT at the time in the emergency department. Patient received multiple doses of IV hydralazine and 1 dose lisinopril 20 mg. Initially blood pressure appeared to be resistant to IV hydralazine pushes with systolics still sustaining in the 200 range. After receiving lisinopril blood pressure reportedly began to level out been in normal range in the 130s. Unfortunately continued to drop systolically to the 70s. Received 1 L IV fluid due to hypotension. Patient blood pressure successfully responded. Hospital medicine consulted for hospital admission due to labile blood pressure. Patient denies numbness, vision changes, extremity weakness, chest pain or shortness of breath. Initial ED workup included laboratory studies, significant findings included sodium level 133, BUN 29, creatinine 1.10, GFR 49, BNP 432. Blood pressure within normal limits prior to transitioning to med/tele floor. Upon assessment patient at bedside she is without any acute distress. Reports headache present but improved. Hemodynamically stable blood pressure 162/60, HR 87, RR 16, temp 97.7, SpO2 99% on room air. [facility] Disclaimer: The information contained in this section may have been updated after the patient was seen, as this information can be updated by other users. Medical History Hoarseness Dysphagia Multiple thyroid nodules Mass in neck Surgical History Status post thyroid surgery History of total abdominal hysterectomy History of rotator cuff surgery History of spinal fusion History of right nephrectomy Social History Smoking Status: Current every day smoker alcohol intake: never current occupational status: retired Travel in the last 8 weeks?: None Have you lived/traveled outside US in past 30 days?: No Contact w/someone who lives/traveled outside US past 30 days?: No Exposure to someone with infectious disease in past 14 days?: No Do you have a fever (greater than 100.4 F or 38 C)?: No Have you tested positive for COVID-19?: No Exposed to someone with COVID-19 in past 14 days?: No Do you have a sore throat?: No Do you have a cough?: No Do you have any weakness?: No Do you have any diarrhea?: No Are you experiencing any unusual bleeding?: No Do you have any muscle aches/pain?: No Do you have any abdominal pain?: No Are you experiencing loss of taste or smell?: No Other Medical History Have you received the Flu Vaccine for this season: Yes Have you received the Pneumonia Vaccine: Yes Review of Systems Review of Systems Review of systems:: pertinent systems reviewed and negative unless documented below Constitutional Constitutional: Reports system reviewed and no additional complaints, except as documented and Reports as per HPI Eyes Eyes: Reports system reviewed and no additional complaints, except as documented and Reports as per HPI ENT Ears, Nose, Mouth, and Throat: Reports system reviewed and no additional complaints, except as documented and Reports as per HPI *Cardiovascular Cardiovascular: Reports system reviewed and no additional complaints, except as documented and Reports as per HPI *Respiratory Respiratory: Reports system reviewed and no additional complaints, except as documented and Reports as per HPI *Gastrointestinal Gastrointestinal: Reports system reviewed and no additional complaints, except as documented and Reports as per HPI *Genitourinary Genitourinary: Reports system reviewed and no additional complaints, except as documented and Reports as per HPI *Musculoskeletal Musculoskeletal: Reports system reviewed and no additional complaints, except as documented and Reports as per HPI Integumentary/Breasts Skin/Breast: Reports system reviewed and no additional complaints, except as documented and Reports as per HPI *Neurologic Neurologic: Reports as per HPI Comments: Headache present, suspect due to hypertension urgency Psychiatric Psychiatric: Reports system reviewed and no additional complaints, except as documented and Reports as per HPI Endocrine Endocrine: Reports system reviewed and no additional complaints, except as documented and Reports as per HPI Hematologic/Lymphatic Hematologic/Lymphatic: Reports system reviewed and no additional complaints, except as documented and Reports as per HPI Allergic/Immunologic Allergic/Immunologic: Reports system reviewed and no additional complaints, except as documented and Reports as per HPI Meds Home Medications and Allergies Home Medications ?Medication ?Instructions ?Recorded ?Confirmed ?Type lisinopril 40 mg tablet 40 mg PO DAILY High blood pr essure 05/14/22 10/13/24 History alendronate 70 mg tablet 70 mg PO DAILY 02/10/2309/20 History New Prescriptions to Start Prescriptions: Allergies Allergy/AdvReac Type Severity Reaction Status Date / Time No Known Allergies Allergy Verified 10/13/24 14:13 Exam Data for Last 24 hours Vital signs and Labs for Last 24 Hours: Temp Pulse Resp BP Pulse Ox O2 Del Method 97.7 F 87 16 162/60 H 99 Room Air 03/22/25 05:44 03/22/25 05:44 03/22/25 05:44 03/22/25 05:44 03/22/25 05:44 03/22/25 06:42 Laboratory Results - last 24 hr 03/22/25 01:25: WBC 11.0 H, RBC 5.02, Hgb 15.1, Hct 44.0, MCV 87.6, MCH 30.1, MCHC 34.3, RDW 12.8, Plt Count 302, MPV 9.0, Neut % (Auto) 43.7, Lymph % (Auto) 47.4, [place] % (Auto) 5.9, Eos % (Auto) 2.1, Baso % (Auto) 0.6, Neut # (Auto) 4.8, Lymph # (Auto) 5.2 H, [place] # (Auto) 0.7, Eos # (Auto) 0.2, Baso # (Auto) 0.1, Total Counted 100, Neutrophils % (Manual) 40 L, Lymphocytes % (Manual) 50, Monocytes % (Manual) 1 L, Eosinophils % (Manual) 5 H, Basophils % (Manual) 4.0 H , Platelet Estimate Normal, RBC Morphology Normal, Sodium 133 L, Potassium 4.2, Chloride 105, Carbon Dioxide 23, Anion Gap 9.2, BUN 29 H, Creatinine 1.10 H, Estimated Creat Clear 44, Estimated GFR 49 L, Est GFR ( Amer) 59, Glucose 103 H, Calcium 9.7, Magnesium 2.1, Total Bilirubin 0.9, AST 22, ALT 15, Alkaline Phosphatase 95, Troponin I < 0.01, NT-Pro-B Natriuret Pep 432 H, Total Protein 7.3, Albumin 4.4, Globulin 2.9, Albumin/Globulin Ratio 1.5, HCV Ab JACOB w/Rflx PCR Qn Negative, HIV Ag/Ab Combo Qual Negative 03/22/25 04:42: WBC 10.6, RBC 4.32, Hgb 12.9 D, Hct 38.1, MCV 88.2, MCH 30.1, MCHC 34.1, RDW 12.8, Plt Count 255, MPV 9.3, Neut % (Auto) 62.3, Lymph % (Auto) 30.3, [place] % (Auto) 5.5, Eos % (Auto) 0.9, Baso % (Auto) 0.7, Neut # (Auto) 6.6, Lymph # (Auto) 3.2, [place] # (Auto) 0.6, Eos # (Auto) 0.1, Baso # (Auto) 0.1, Sodium 142, Potassium 4.0, Chloride 112 H, Carbon Dioxide 24, Anion Gap 10.0, BUN 23 H, Creatinine 0.90, Estimated Creat Clear 49, Estimated GFR 62, Est GFR ( Amer) 75 D, Glucose 100, Calcium 8.1 L, Troponin I < 0.01 I & O for Last 24 hours: Intake & Output 03/19/25 03/20/25 03/21/25 03/22/25 23:59 23:59 23:59 23:59 Intake Total 1000 / 1000 Balance 1000 / 1000 Weight 59.693 kg *Routine HEENT Exam Head: Present normocephalic and atraumatic Eye: Present EOMI, PERRL and normal accommodation ENT: Present mucous membranes moist *Routine Respiratory Exam Respiratory: Present normal respiratory effort *Routine Cardiovascular Exam Cardiovascular: Present RRR, Normal S1 and Normal S2 *Routine Abdominal Exam Abdominal: Present soft and normoactive bowel sounds *Routine Rectal Exam Rectal:: deferred *Routine Genitalia Exam Genitalia:: deferred Assessment and Plan *Assessment and plan (1) Hypertensive urgency: Status: Acute Category: Medical Code(s): I16.0 - Hypertensive urgency (2) Headache: Status: Acute Qualifiers: Headache type: unspecified Intractability: not intractable Headache chronicity pattern: acute headache Qualified Code(s): R51.9 - Headache, unspecified Category: Medical Code(s): R51.9 - Headache, unspecified (3) Single functional kidney: Status: Acute Category: Medical Code(s): Z90.5 - Acquired absence of kidney Plan Assessment/plan: Patient discussed with the emergency department provider and agree with admission to the hospital. Patient is a 69-year-old female with a past medical history significant for hypertension. Presents with complaints of elevated blood pressure. Systolic blood pressure within the upper 200 range. Patient received multiple doses of IV hydralazine and 1 dose of lisinopril 20 mg within the emergency department. Noted blood pressure sustained in the upper 200 range despite a couple doses of IV hydralazine. After receiving lisinopril patient blood pressure reportedly decreased slowly to hypotensive systolic pressure of 70. 1 L IV fluid was given with successful return of blood pressure within normal limits. Blood pressure on arrival to med/tele unit 162/60 patient with mild dull headache, declining CT head at this time. IV hydralazine as needed for systolic blood pressure sustained over 180. Will likely defer to daytime team for any further oral antihypertensive medication adjustments due to labile blood pressure. A.m. labs. 1. Hypertensive urgency: Sustained elevated blood pressure. Patient reports recent adjustment with antihypertensive regime. Was on lisinopril that was changed to losartan. States since she was on losartan she has had elevated blood pressures. Systolic blood pressure in the emergency department within the 200 range. Received multiple doses of IV hydralazine with continued sustained blood pressure. Lisinopril 20 mg given and noted improvement but unfortunately continued to drop with hypotensive blood pressure systolic 70s. 1 L IV fluids received with corrected blood pressure in the 130 over 60s-upon arrival to the floor blood pressure 160/60 range. Mild headache continued. Suspect likely due to the sustained elevated blood pressure. Discussed CT head, continues to decline. Patient without any focal deficit at this time. Closely monitor blood pressure, IV hydralazine placed for systolic greater than 180 sustained. Resume home medication when reconciled. Defer to daytime team for any additional changes to antihypertensive medication due to labile state. Follow morning labs. 2. Single functioning kidney: Patient reports single functioning kidney- creatinine 1.10, GFR 49, BUN 29-monitor closely, avoid nephrotoxic medication. Full code Healthy heart diet DVT prophylaxis SCDs
--- NOTE | 2025-03-22 08:45 | HMH.PHAINT1 ---
Pharmacy Intervention Comments: MEDICATION RECONCILIATION COMPLETED ON PATIENT USING LIST FROM PCP OFFICE. -JUDSON NEAL, RISAD
[2025-03-22 08:52] LABS: Thyroid Stimulating Hormone 4.26 uIU/mL (0.465-4.68)
--- NOTE | 2025-03-22 10:42 | EXP.DC.SUM ---
General Admission date:: 03/22/25 HPI HPI HPI: Patient is a 69-year-old female with a past medical history significant for hypertension. She presents to [facility] due to uncontrolled hypertension. Reports recent change to her antihypertensive medication per provider. States that she was switched from lisinopril to losartan within the last month and since has had issues with intermittent high blood pressure. Patient concerned due to 1 functioning kidney. Prior to arrival to the emergency department she noted her blood pressure with a diastolic pressure in the 100s. She notified her provider who encouraged her to follow-up with the emergency department for further evaluation and treatment due to elevated BP. On arrival she was found to have systolic blood pressures in the upper 200 range. Patient ultimately developed a headache but states she typically has a headache with her elevated blood pressures. Declined CT at the time in the emergency department. Patient received multiple doses of IV hydralazine and 1 dose lisinopril 20 mg. Initially blood pressure appeared to be resistant to IV hydralazine pushes with systolics still sustaining in the 200 range. After receiving lisinopril blood pressure reportedly began to level out been in normal range in the 130s. Unfortunately continued to drop systolically to the 70s. Received 1 L IV fluid due to hypotension. Patient blood pressure successfully responded. Hospital medicine consulted for hospital admission due to labile blood pressure. Patient denies numbness, vision changes, extremity weakness, chest pain or shortness of breath. Initial ED workup included laboratory studies, significant findings included sodium level 133, BUN 29, creatinine 1.10, GFR 49, BNP 432. Blood pressure within normal limits prior to transitioning to med/tele floor. Upon assessment patient at bedside she is without any acute distress. Reports headache present but improved. Hemodynamically stable blood pressure 162/60, HR 87, RR 16, temp 97.7, SpO2 99% on room air. Hospital Course Hospital Course Hospital Course: Janet Lemons is a 69-year-old female who presented with elevated blood pressures at home and headache and was admitted for transient hypotension after treatment of hypertension in the ED. #Hypertension #Episode of hypotension #Solitary kidney ? 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 ? Has had intermittent issues with blood pressure control, currently on losartan 100 mg and recently started on hydrochlorothiazide 25 mg. She states she sometimes takes her losartan as needed, and has not started her hydrochlorothiazide. ? She was given lisinopril 20 mg and hydralazine 10 mg x 3 in the ED with improvement in blood pressure in the ED, however systolics dropped to 70s. ? Today, blood pressures stable at 143 over 50s. Asymptomatic. ? Patient prefers lisinopril over losartan as she states it used to control her blood pressures better, will continue lisinopril 20 mg since patient has been receiving it here and advised patient to check her blood pressures at home and keep a log. Discontinue losartan. For now if SBP greater than 150, advised to start taking hydrochlorothiazide 25 mg as prescribed by her PCP. ? Will follow-up with PCP within 1 week for further evaluation management. #Suspected right lower quadrant abdominal hernia ? Patient states has been ongoing for 5 years, no significant worsening but does have intermittent pains. Patient states she will follow-up with PCP for further evaluation and management. No acute findings or peritoneal signs. #History of osteoporosis/osteopenia ? Continue home alendronate 70 mg weekly. Total time spent on discharge: 33 minutes on chart review, counseling, documentation, and direct care with patient. Exam Data for Last 24 hours Vital signs and Labs for Last 24 Hours: Temp Pulse Resp BP Pulse Ox O2 Del Method 98.7 F 84 20 143/55 H 98 Room Air 03/22/25 08:00 03/22/25 08:00 03/22/25 08:00 03/22/25 08:00 03/22/25 08:00 03/22/25 08:00 Laboratory Results - last 24 hr 03/22/25 01:25: WBC 11.0 H, RBC 5.02, Hgb 15.1, Hct 44.0, MCV 87.6, MCH 30.1, MCHC 34.3, RDW 12.8, Plt Count 302, MPV 9.0, Neut % (Auto) 43.7, Lymph % (Auto) 47.4, [place] % (Auto) 5.9, Eos % (Auto) 2.1, Baso % (Auto) 0.6, Neut # (Auto) 4.8, Lymph # (Auto) 5.2 H, [place] # (Auto) 0.7, Eos # (Auto) 0.2, Baso # (Auto) 0.1, Total Counted 100, Neutrophils % (Manual) 40 L, Lymphocytes % (Manual) 50, Monocytes % (Manual) 1 L, Eosinophils % (Manual) 5 H, Basophils % (Manual) 4.0 H, Platelet Estimate Normal, RBC Morphology Normal, Sodium 133 L, Potassium 4.2, Chloride 105, Carbon Dioxide 23, Anion Gap 9.2, BUN 29 H, Creatinine 1.10 H, Estimated Creat Clear 44, Estimated GFR 49 L, Est GFR ( Amer) 59, Glucose 103 H, Calcium 9.7, Magnesium 2.1, Total Bilirubin 0.9, AST 22, ALT 15, Alkaline Phosphatase 95, Troponin I < 0.01, NT-Pro-B Natriuret Pep 432 H, Total Protein 7.3, Albumin 4.4, Globulin 2.9, Albumin/Globulin Ratio 1.5, TSH 4.26, HCV Ab JACOB w/Rflx PCR Qn Negative, HIV Ag/Ab Combo Qual Negative 03/22/25 04:42: WBC 10.6, RBC 4.32, Hgb 12.9 D, Hct 38.1, MCV 88.2, MCH 30.1, MCHC 34.1, RDW 12.8, Plt Count 255, MPV 9.3, Neut % (Auto) 62.3, Lymph % (Auto) 30.3, [place] % (Auto) 5.5, Eos % (Auto) 0.9, Baso % (Auto) 0.7, Neut # (Auto) 6.6, Lymph # (Auto) 3.2, [place] # (Auto) 0.6, Eos # (Auto) 0.1, Baso # (Auto) 0.1, Sodium 142, Potassium 4.0, Chloride 112 H, Carbon Dioxide 24, Anion Gap 10.0, BUN 23 H, Creatinine 0.90, Estimated Creat Clear 49, Estimated GFR 62, Est GFR ( Amer) 75 D, Glucose 100, Calcium 8.1 L, Troponin I < 0.01 I & O for Last 24 hours: Intake & Output 03/19/25 03/20/25 03/21/25 03/22/25 23:59 23:59 23:59 23:59 Intake Total 1360 / 1360 Output Total 0 / 0 Balance 1360 / 1360 Weight 59.693 kg Constitutional Constitutional: no acute distress *Routine HEENT Exam Head: Present normocephalic Eye: Present EOMI and PERRL ENT: Present mucous membranes moist *Routine Neck Exam Neck: Present supple; Absent lymphadenopathy *Routine Respiratory Exam Respiratory: Present CTA bilaterally *Routine Cardiovascular Exam Cardiovascular: Present RRR *Routine Abdominal Exam Abdominal: Present soft and normoactive bowel sounds; Absent tenderness *Routine Extremities Exam Extremities: Absent cyanosis, clubbing or edema Comments: Suspected right lower quadrant firmness/hernia. *Routine Skin Exam Skin: Present warm; Absent rash *Routine Neurological Exam Neurological: Present alert and oriented X3 Results Data Completed and Pending Labs on day of discharge: Labs from last 24 hours 03/22/25 03/22/25 04:42 01:25 WBC 10.6 11.0 H RBC 4.32 5.02 Hgb 12.9 D 15.1 Hct 38.1 44.0 MCV 88.2 87.6 MCH 30.1 30.1 MCHC 34.1 34.3 RDW 12.8 12.8 Plt Count 255 302 MPV 9.3 9.0 Neut % (Auto) 62.3 43.7 Lymph % (Auto) 30.3 47.4 [place] % (Auto) 5.5 5.9 Eos % (Auto) 0.9 2.1 Baso % (Auto) 0.7 0.6 Neut # (Auto) 6.6 4.8 Lymph # (Auto) 3.2 5.2 H [place] # (Auto) 0.6 0.7 Eos # (Auto) 0.1 0.2 Baso # (Auto) 0.1 0.1 Total Counted 100 Neutrophils % (Manual) 40 L Lymphocytes % (Manual) 50 Monocytes % (Manual) 1 L Eosinophils % (Manual) 5 H Basophils % (Manual) 4.0 H Platelet Estimate Normal RBC Morphology Normal Sodium 142 133 L Potassium 4.0 4.2 Chloride 112 H 105 Carbon Dioxide 24 23 Anion Gap 10.0 9.2 BUN 23 H 29 H Creatinine 0.90 1.10 H Estimated Creat Clear 49 44 Estimated GFR 62 49 L Est GFR ( Amer) 75 D 59 Glucose 100 103 H Calcium 8.1 L 9.7 Magnesium 2.1 Total Bilirubin 0.9 AST 22 ALT 15 Alkaline Phosphatase 95 Troponin I < 0.01 < 0.01 NT-Pro-B Natriuret Pep 432 H Total Protein 7.3 Albumin 4.4 Globulin 2.9 Albumin/Globulin Ratio 1.5 TSH 4.26 HCV Ab JACOB w/Rflx PCR Qn Negative HIV Ag/Ab Combo Qual Negative DS: Diagnosis Discharge Diagnosis (1) Hypertensive urgency: Status: Acute Code(s): I16.0 - Hypertensive urgency (2) Headache: Status: Acute Code(s): R51.9 - Headache, unspecified Qualifiers: Headache chronicity pattern: acute headache Headache type: unspecified Intractability: not intractable Qualified Code(s): R51.9 - Headache, unspecified (3) Single functional kidney: Status: Acute Code(s): Z90.5 - Acquired absence of kidney Meds Home Medications and Allergies Home Medications ?Medication ?Instructions ?Recorded ?Confirmed ?Type alendronate 70 mg tablet 70 mg PO WEEKLY 02/10/23 03/22/25 History hydrochlorothiazide 25 mg tablet 25 mg PO DAILY 03/22/25 03/22/25 History lisinopril 20 mg tablet 20 mg PO DAILY 30 days #30 tabs 03/22/25 Rx New Prescriptions to Start Prescriptions: lisinopril Jeison Sands Allergies Allergy/AdvReac Type Severity Reaction Status Date / Time No Known Allergies Allergy Verified 10/13/24 14:13 Discharge Plan Disposition Patient Disposition: Home, Self-Care Condition: Fair Follow up Plan Follow up with: Shakeel Chester MD [Primary Care Provider, Internal Medicine] - 03/30/25 4:00 pm Prescriptions/Medication Reconciliation: New lisinopril 20 mg Tablet 20 mg PO DAILY 30 Days Qty: 30 0RF Continued alendronate 70 mg tablet 70 mg PO WEEKLY hydrochlorothiazide 25 mg Tablet 25 mg PO DAILY Discontinued losartan 100 mg Tablet 100 mg PO HS Problem Reconciliation Problems Reviewed?: Yes Patient Discharge Instructions Patient Instructions: Hypertension (Alternative Therapy) Print Language: Italian Providers Primary Care Provider: Shakeel Chester Admit Provider: Sammy Bar Attending Provider: Sammy Bar
--- NOTE | 2025-03-22 10:43 | CA_ITS ---
APPROVED REPORT EXAM: Comprehensive 2D, Doppler, and color-flow Echocardiogram Market Research Intern: Pat Harvey CRT Ht: 5 ft 4 in Wt: 131lbs BSA: 1.63 BP: 162/60 mmHg Indications: Hypertension/HDD, smoker, 1 functioning kidney, hld 2D Dimensions IVSd 1.57 cm F: 0.6-1.0 LVEF (Visual) 60.00 % PWd 1.10 cm F: 0.6 - 1.0 LVDd 4.40 cm F: 3.9 - 5.3 LVDs 2.79 cm F: 2.2 - 3.5 Aortic Root 3.59 cm F: 2.7 - 3.3 Left Atrium 3.09 cm F: 2.7 - 3.8 LVOT 1.50 cm (M/F) 1.5-2.5 Left Ventricle The left ventricle is normal size. Left ventricular systolic function is normal. The left ventricular ejection fraction is within the normal range. There is increased left ventricular wall thickness. There is normal LV segmental wall motion. Transmitral Doppler flow pattern suggests impaired LV relaxation. LVEF is 60%. Right Ventricle The right ventricle is normal size. The right ventricular systolic function is normal. Atria The left atrium size is normal. The right atrium size is normal. There is no color Doppler evidence of interatrial shunt. Aortic Valve The aortic valve is mildly thickened. There is no hemodynamically significant aortic valvular stenosis. No aortic regurgitation is present. Mitral Valve The mitral valve is normal in structure. No evidence of mitral valve stenosis. Mild mitral regurgitation is present. Tricuspid Valve The tricuspid valve leaflets are thin and pliable. Trace tricuspid regurgitation. There is insufficient TR jet to estimate RVSP. Pulmonic Valve The pulmonary valve is grossly normal in structure. Mild pulmonic valve regurgitation is present. Great Vessels The aortic root is normal in size. IVC is normal in size and collapses >50% with inspiration. Pericardium There is no pericardial effusion. Other Information Study Quality: Fair Conclusion Normal biventricular systolic function. Mild MR, mild PI. Electronically signed by : Fariha Ferrell MD 03/22/2025 13:07:53
--- NOTE | 2025-03-22 12:37 | EXP.CARD.CON ---
History of Present Illness History of Present Illness Consult date: 03/22/25 Requesting physician: Jeison Sands Consult reason: hypertension Chief complaint: Hypertension Additional Medical History:: 1. Hypertension, treated for many years 2. Tobacco use, started at age 12, 1 pack/day currently 3. History of thyroid nodules History of present illness: 69-year-old white female admitted through [facility] ER for hypertension. Recent change in blood pressure medication from lisinopril to losartan with subsequent intermittent high blood pressure. Patient reports 1 functioning kidney. She received doses of hydralazine in the ER without significant response but after a single dose of lisinopril 20 mg daily blood pressure did significantly improved and then ultimately dropped to a systolic in the 70s requiring IV fluid assistance. Patient admitted for observation. Cardiology consulted for recommendations and for outpatient follow-up. Patient has had some recent episodes of significant fatigue but denies any chest pain, pressure or tightness. He has noted some lower extremity edema but states she did eat extra salty food over Thanksgiving and does sit at the computer a lot. She was recently given some hydrochlorothiazide by her PCP but does not take it on a regular basis. [facility] Disclaimer: The information contained in this section may have been updated after the patient was seen, as this information can be updated by other users. Medical History Hoarseness Dysphagia Multiple thyroid nodules Mass in neck Surgical History Status post thyroid surgery History of total abdominal hysterectomy History of rotator cuff surgery History of spinal fusion History of right nephrectomy Social History Smoking Status: Current every day smoker alcohol intake: never current occupational status: retired Travel in the last 8 weeks?: None Have you lived/traveled outside [place] in past 30 days?: No Contact w/someone who lives/traveled outside US past 30 days?: No Exposure to someone with infectious disease in past 14 days?: No Do you have a fever (greater than 100.4 F or 38 C)?: No Have you tested positive for COVID-19?: No Exposed to someone with COVID-19 in past 14 days?: No Do you have a sore throat?: No Do you have a cough?: No Do you have any weakness?: No Do you have any diarrhea?: No Are you experiencing any unusual bleeding?: No Do you have any muscle aches/pain?: No Do you have any abdominal pain?: No Are you experiencing loss of taste or smell?: No Review of Systems Review of Systems Review of systems:: pertinent systems reviewed and negative unless documented below *Cardiovascular Cardiovascular: Denies chest pain and Reports dyspnea on exertion *Respiratory Respiratory: Reports dyspnea on exertion *Neurologic Neurologic: Reports as per HPI Exam Data for Last 24 hours Vital signs and Labs for Last 24 Hours: Temp Pulse Resp BP Pulse Ox O2 Del Method 98.7 F 84 20 143/55 H 98 Room Air 03/22/25 08:00 03/22/25 08:00 03/22/25 08:00 03/22/25 08:00 03/22/25 08:00 03/22/25 11:00 Laboratory Results - last 24 hr 03/22/25 01:25: WBC 11.0 H, RBC 5.02, Hgb 15.1, Hct 44.0, MCV 87.6, MCH 30.1, MCHC 34.3, RDW 12.8, Plt Count 302, MPV 9.0, Neut % (Auto) 43.7, Lymph % (Auto) 47.4, Stewart % (Auto) 5.9, Eos % (Auto) 2.1, Baso % (Auto) 0.6, Neut # (Auto) 4.8, Lymph # (Auto) 5.2 H, Stewart # (Auto) 0.7, Eos # (Auto) 0.2, Baso # (Auto) 0.1, Total Counted 100, Neutrophils % (Manual) 40 L, Lymphocytes % (Manual) 50, Monocytes % (Manual) 1 L, Eosinophils % (Manual) 5 H, Basophils % (Manual) 4.0 H, Platelet Estimate Normal, RBC Morphology Normal, Sodium 133 L, Potassium 4.2, Chloride 105, Carbon Dioxide 23, Anion Gap 9.2, BUN 29 H, Creatinine 1.10 H, Estimated Creat Clear 44, Estimated GFR 49 L, Est GFR ( Amer) 59, Glucose 103 H, Calcium 9.7, Magnesium 2.1, Total Bilirubin 0.9, AST 22, ALT 15, Alkaline Phosphatase 95, Troponin I < 0.01, NT-Pro-B Natriuret Pep 432 H, Total Protein 7.3, Albumin 4.4, Globulin 2.9, Albumin/Globulin Ratio 1.5, TSH 4.26, HCV Ab JACOB w/Rflx PCR Qn Negative, HIV Ag/Ab Combo Qual Negative 03/22/25 04:42: WBC 10.6, RBC 4.32, Hgb 12.9 D, Hct 38.1, MCV 88.2, MCH 30.1, MCHC 34.1, RDW 12.8, Plt Count 255, MPV 9.3, Neut % (Auto) 62.3, Lymph % (Auto) 30.3, Stewart % (Auto) 5.5, Eos % (Auto) 0.9, Baso % (Auto) 0.7, Neut # (Auto) 6.6, Lymph # (Auto) 3.2, Stewart # (Auto) 0.6, Eos # (Auto) 0.1, Baso # (Auto) 0.1, Sodium 142, Potassium 4.0, Chloride 112 H, Carbon Dioxide 24, Anion Gap 10.0, BUN 23 H, Creatinine 0.90, Estimated Creat Clear 49, Estimated GFR 62, Est GFR ( Amer) 75 D, Glucose 100, Calcium 8.1 L, Troponin I < 0.01 I & O for Last 24 hours: Intake & Output 03/20/25 03/21/25 03/22/25 03/23/25 11:59 11:59 11:59 11:59 Intake Total 1360 / 1360 Output Total 0 / 0 Balance 1360 / 1360 Weight 131 lb 9.6 oz Constitutional Constitutional: no acute distress *Routine Respiratory Exam Respiratory: Present CTA bilaterally; Absent rhonchi or wheezes *Routine Cardiovascular Exam Cardiovascular: Present RRR; Absent murmur, gallop or rubs *Routine Extremities Exam Extremities: Absent edema *Routine Neurological Exam Neurological: Present alert, oriented X3 and CN II-XII intact Meds Home Medications and Allergies Home Medications ?Medication ?Instructions ?Recorded ?Confirmed ?Type alendronate 70 mg tablet 70 mg PO WEEKLY 02/10/23 03/22/25 History hydrochlorothiazide 25 mg tablet 25 mg PO DAILY 03/22/25 03/22/25 History lisinopril 20 mg tablet 20 mg PO DAILY 30 days #30 tabs 03/22/25 Rx New Prescriptions to Start Prescriptions: lisinopril Jeison Sands Allergies Allergy/AdvReac Type Severity Reaction Status Date / Time No Known Allergies Allergy Verified 10/13/24 14:13 Assessment and Plan *Assessment and plan (1) Hypertensive urgency: Status: Acute Category: Medical Code(s): I16.0 - Hypertensive urgency (2) Single functional kidney: Status: Acute Category: Medical Code(s): Z90.5 - Acquired absence of kidney (3) Multiple thyroid nodules: Status: Acute Category: Medical Code(s): E04.2 - Nontoxic multinodular goiter Plan 1. Hypertension with hypertensive urgency -Controlled with lisinopril 20 mg daily -Would recommend adding HCTZ 25 mg 3 days/week due to HTN and mildly elevated BNP -Monitor renal function closely 2. Single functioning kidney with creatinine of 0.9 3. Multiple thyroid nodules -felt to be cystic and hypoechoic with no need for follow-up by ultrasound 09/27/2024 4. Moderate coronary artery calcifications -noted on CT of the lung 02/05/2024 -previous history of myalgias on statin therapy 5. Tobacco use -Stable lung nodules on CT scan 01/2024 Echocardiogram today shows preserved ejection fraction with no significant valve disease. Patient stable for discharge home. Home medication recommendations: Lisinopril 20 mg daily HCTZ 25 mg 3 times per week Follow-up in our office in 1 week with consideration for outpatient renal artery duplex due to history of solitary functioning kidney. Would also recommend outpatient stress testing due to coronary artery calcifications.
--- NOTE | 2025-03-24 15:09 | SW/DCPLANNER ---
Spoke with patient on the phone. Patient stated that she is doing good. Patient stated that she is aware of her upcoming appointment. Patient stated that she was able to pick pulling machine tender her new medicine. Patient stated that she has no concerns or questions at this time. Juvenal Oviedo
== END 2025-03-22 13:30 | disposition home or self-care (01) ==
LOC: ER 04:21 → 2ND 04:25
PROVIDERS: Nurse Practitioner Acute Care; Student in an Organized Health Care Education/Training Program; Admitting Provider Internal Medicine Adolescent Medicine; Emergency Provider Emergency Medicine; PCP Internal Medicine Adolescent Medicine; Visit Provider Internal Medicine Adolescent Medicine
DX: I16.0 Hypertensive urgency (principal); Z90.5 Acquired absence of kidney; E04.2 Nontoxic multinodular goiter; Z90.710 Acquired absence of both cervix and uterus; Z98.1 Arthrodesis status; F17.200 Nicotine dependence, unspecified, uncomplicated; I10 Essential (primary) hypertension; M81.0 Age-related osteoporosis without current pathological fracture; I34.0 Nonrheumatic mitral (valve) insufficiency; J98.4 Other disorders of lung; R94.31 Abnormal electrocardiogram [ECG] [EKG]; I25.10 Atherosclerotic heart disease of native coronary artery without angina pectoris
CPT/HCPCS: 80048; 80053; 83735; 83880; 84443; 84484; 85007; 85025; 85027; 86803; 87389; 93005; 93306; 99285; G0378; J0360; J7120

== ENCOUNTER 2025-03-30 12:35 | Outpatient (CLI) | payer MEDICARE, SELFPAY ==
--- NOTE | 2025-03-30 12:46 | MM_ITS ---
PROCEDURE INFORMATION: Exam: MG Bilateral Screening 3D Mammography Exam date and time: 03/30/2025 12:57 PM Age: 69 years old Clinical indication: Screening examination. Her sister had breast cancer age 52. TECHNIQUE: Imaging protocol: Bilateral Screening tomosynthesis and 2D mammography including computer-aided detection (CAD) when performed. COMPARISON: 1. MG MM DIG SCREENING MAMM BI W/CAD 02/05/2024 12:47 PM 2. MG MM DIG SCREENING MAMM BI W/CAD 01/18/2022 8:32 AM 3. MG MM DIG SCREENING MAMM BI W/CAD 08/14/2020 9:13 AM 4. MG DMSB DIG MAMM-SCREEN SARAY W/CAD 05/13/2016 3:31 PM FINDINGS: MAMMOGRAPHY: Breast composition: The breasts are heterogeneously dense, which may obscure small masses. Mass: None. Architectural distortion: None. Calcifications: No suspicious calcifications. Asymmetric density: No developing asymmetry. Skin thickening: None. Axillary adenopathy: None. IMPRESSION: No mammographic evidence of malignancy. Annual screening is recommended unless otherwise clinically indicated. ASSESSMENT: BI-RADS Category 1: Negative.
== END 2025-03-30 23:59 | disposition home or self-care (01) ==
LOC: RAD 12:36
PROVIDERS: PCP Internal Medicine Adolescent Medicine; Visit Provider Internal Medicine Adolescent Medicine
DX: Z12.31 Encounter for screening mammogram for malignant neoplasm of breast (principal); R92.333 Mammographic heterogeneous density, bilateral breasts
CPT/HCPCS: 77063; 77067